=== PATIENT | female | born 1985 | race American Indian/Alaskan Native ===

== ENCOUNTER 2016-10-29 15:21 | Outpatient (CLI) | payer MEDICAID ==
[2016-10-29 15:57] VITALS: BP 108/62
== END 2016-10-29 17:00 | disposition home or self-care (01) ==
LOC: TRG 15:21
PROVIDERS: ATTEND Obstetrics & Gynecology
DX: O48.0 Post-term pregnancy (principal); Z3A.41 41 weeks gestation of pregnancy
CPT/HCPCS: 59025

== ENCOUNTER 2016-10-30 03:44 | Outpatient (CLI) | payer MEDICAID ==
[2016-10-30 04:13] VITALS: BP 126/68
[2016-10-30] MEDS ORDERED: VISTARIL PO ONE (05:22)
== END 2016-10-30 05:55 | disposition home or self-care (01) ==
LOC: TRG 03:44
PROVIDERS: ATTEND Obstetrics & Gynecology
DX: O48.0 Post-term pregnancy (principal); Z3A.41 41 weeks gestation of pregnancy
CPT/HCPCS: Q0177

== ENCOUNTER 2016-10-30 16:29 | Inpatient (IN) | payer MEDICAID ==
[~2016-10-30 16:29] MED LIST: NACL 0.9% IR ONE; WATER FOR IRRIG STERILE IR ONE
[2016-10-30] MEDS ORDERED: POLYCILLIN/NS 2 GM/100 ML 2 GM/100 ML BAG IV ONE (17:56)
[2016-10-30] MEDS ORDERED: LACTATED RINGERS 1,000 ML ONE (17:56)
[2016-10-30] MEDS ORDERED: MINERAL OIL PO PRN (18:07)
[2016-10-30] MEDS ORDERED: BRETHINE SUB-Q PRN (18:07)
[2016-10-30] MEDS ORDERED: BRETHINE IVP PRN (18:07)
[2016-10-30] MEDS ORDERED: ePHEDrine SULFATE IV PRN (18:07)
[2016-10-30] MEDS ORDERED: XYLOCAINE 2% INFILTRATI ONE (18:07)
--- NOTE | 2016-10-30 18:07 | History and Physical Report ---
History of Present Illness Date of examination: 10/30/16 Date of admission: 10/30/16 16:33 Chief complaint: my water broke and its brown History of present illness: Pt called provider nikunj 1530pm stating her water broke and she noted the color was brown mixed with clear fluid. Pt was advised to come to triage for evaluation. Pt is confirmed SROM with 3 to 4+mec noted. cx is 5/80/-1 to 0. Pt admitted for SROM and active labor @ 41 wks. EDC Confirmation: 10/23/2016 Gestational Age: 10 2/7 weeks Past History : 1 Para: 0 Past Medical History: Negative Past Medical History Past Surgical History: Tonsillectomy Past Medical History Surgery (Non-obstetrics gynecology physician): Tonsillectomy Abnormal PAP: negative CHANELL Exposure: negative Infertility: negative Uterine Anomaly: negative Uterine Surgery (not C/S): negative Other Gynecologic Problems: negative Social Hx: Patient is single Smoking History: Patient is a former smoker. Infection History Hx of STD: none HIV Risk Eval: low risk Hepatitis B Risk Eval: low risk Personal hx. of genital herpes: no Partner hx. of genital herpes: no Rash, Viral, or Febrile illness since last LMP? no Varicella/Chicken Pox Status: Previous Disease Genetic History Congenital Heart Defect: Mom: no Dad: no Leslie Disease: Mom: no Dad: no Thalassemia Mom: no Dad: no Neural Tube Defect Mom: no Dad: no Down's Syndrome Mom: no Dad: no Puneet-Sachs Mom: no Dad: no Sickle Cell Disease/Trait Mom: no Dad: no Hemophilia Mom: no Dad: no Muscular Dystrophy Mom: no Dad: no Cystic Fibrosis Mom: no Dad: no Coleman Chorea Mom: no Dad: no Mental Retardation Mom: no Dad: no Fragile X Mom: no Dad: no Other Genetic/Chromosomal Disorder Mom: no Dad: no Child w/other defect Mom: no Dad: no Enviromental Exposures Xray Exposure: no Medication, drug, or alcohol use since LMP: no Chemical/Other Exposure: no Exposure to Cat Liter: no Hx of Parvovirus (Fifth Disease): no Occupational Exposure to Children: none Past History Past Medical History: no pertinent history Past Surgical History: no surgical history 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: abnormal PAP smear Family/Genetic History: none Social history: no significant social history, single - Obstetrical History Expected Date of Delivery: 10/23/16 Actual Gestation: 41 Week(s) 0 Day(s) : 1 Medications and Allergies Allergies Allergy/AdvReac Type Severity Reaction Status Date / Time cefaclor [From Ceclor] Allergy Severe Anaphylaxis Verified 10/29/16 16:40 latex Allergy Rash Verified 10/29/16 16:40 FISH Allergy Intermediate Anaphylaxis Uncoded 10/29/16 16:40 Home Medications Medication Instructions Recorded Confirmed Last Taken Type Acetaminophen [Shake That Ache] 1,000 mg PO Q8HR PRN 10/29/16 10/29/16 10/28/16 21:00 History 1 Review of Systems All systems: negative - Vital Signs Vital signs: Vital Signs Pulse Pulse Ox 83 99 10/30/16 17:17 10/30/16 17:17 Temp Pulse Resp BP Pulse Ox 87 98 10/30/16 17:27 10/30/16 17:27 - Physical Exam Lungs: Positive: Normal air movement Abdomen: Positive: normal appearance, soft. Negative: tenderness, guarding Genitourinary (Female): Positive: normal external genitalia, normal perenium Vulva: both: normal (meconium fluid noted) - Obstetrical FHR: auscultation normal Cervical Dilatation: 5.5 Cervical Effacement Percentage: 80 station: -1 to 0 Uterine Contraction Pattern: Regular Uterine Tone Measurement Phase: Resting Uterine Contraction Intensity: Moderate Results All other labs normal. Assessment and Plan - Patient Problems (1) 41 weeks gestation of Current Visit: Yes Status: Acute (2) Active labor Current Visit: Yes Status: Acute Plan to address problem: -pelvis feels adequate -closely monitor -anticipate (3) Meconium in amniotic fluid affecting management of mother Current Visit: Yes Status: Acute Qualifiers: Fetus number: F Trimester: T Plan to address problem: -admit -pitocin augmentation to facilitate delivery (4) Group beta Strep positive Current Visit: Yes Status: Acute Plan to address problem: -clinda started at this time due to pt drug allery and possible interactions with amp, pcn, or ancef -pitocin to augment labor
[2016-10-30] MEDS: LACTATED RINGERS 1,000 ML IV SCH ×2 (18:20→23:12)
[2016-10-30 18:25] LABS: Hematocrit 34.4 % (30.3-42.9); Hemoglobin 11.1 gm/dl (10.1-14.3); Mean Corpuscular HGB Conc 32 % (30-34); Mean Corpuscular Volume 78 fl (79-97); Platelet Count 301 K/mm3 (140-440); Red Blood Count 4.39 M/mm3 (3.65-5.03); Red Cell Distribution Width 16.1 % (13.2-15.2); White Blood Count 7.8 K/mm3 (4.5-11.0)
[2016-10-30] MEDS: SUBLIMAZE IV PRN ×2 (18:37→20:41)
[2016-10-30 18:46] LABS: Mean Corpuscular Hemoglobin 25 pg (28-32)
[2016-10-30] MEDS ORDERED: PITOCin/NS 30 UNIT/500ML 30 UNITS/500 ML BAG IV SCH ×2 (19:00)
[2016-10-30] MEDS ORDERED: PITOCin/NS 20 UNIT/1000ML DRIP 20 UNITS/1,000 ML BAG IV SCH (19:00)
[2016-10-30] MEDS ORDERED: CLEOCIN 900 MG/50 mL 900 MG/50 ML BAG IV SCH (22:00)
[2016-10-30] MEDS ORDERED: BICITRA PO ONE (22:40)
[2016-10-30] MEDS ORDERED: BICITRA ONE (23:03)
[2016-10-30] MEDS ORDERED: PEPCID IV ONE (23:03)
[2016-10-30] MEDS ORDERED: REGLAN ONE (23:03)
--- NOTE | 2016-10-30 23:17 | Event Note ---
Date: 10/30/16 Patient has failed to make cervical change or descent despite adequate contractions with the pitocin. Will proceed with c/s at this time for failure to progress. All risk, benefits, and alternatives were d/w pt and questions were addressed and answered. Consents were signed and placed on the chart.
--- NOTE | 2016-10-30 23:26 | Anesthesia Day of Surgery ---
Anesthesia Day of Surgery - Day of Surgery Patient Examined: Yes Patient H&P Reviewed: Yes Patient is NPO: Yes
[2016-10-30] MEDS ORDERED: DILAUDID IV PRN (23:28)
[2016-10-30] MEDS ORDERED: NARCAN 0.4 MG/1 ML IV PRN (23:28)
[2016-10-30] MEDS ORDERED: ZOFRAN IV PRN (23:28)
--- NOTE | 2016-10-30 23:28 | Anesthesia Consultation ---
Anesthesia Consult and Med Hx Date of service: 10/30/16 - Airway Anesthetic Teeth Evaluation: Good ROM Head & Neck: Inadequate Mental/Hyoid Distance: Inadequate Mallampati Class: Class III Intubation Access Assessment: Possibly Difficult - Pulmonary Exam CTA: Yes (blbs clear) - Cardiac Exam Cardiac Exam: RRR - Pre-Operative Health Status ASA Pre-Surgery Classification: ASA3 Proposed Anesthetic Plan: Epidural, Spinal - Pulmonary Hx Asthma: No COPD: No Hx Pneumonia: No - Cardiovascular System Hx Hypertension: No - Central Nervous System Hx Seizures: No Hx Psychiatric Problems: No - Endocrine Hx Renal Disease: No Hx End Stage Renal Disease: No Hx Hypothyroidism: No Hx Hyperthyroidism: No - Hematic Hx Anemia: Yes Hx Sickle Cell Disease: No - Other Systems Hx Alcohol Use: Yes Hx Obesity: Yes (morbid obesity)
[2016-10-30] MEDS ORDERED: MORPHINE ONE (23:34)
[2016-10-30] MEDS ORDERED: SODIUM CHLORIDE FLUSH SYRINGE 10 ML IV NR (23:45)
[2016-10-31] MEDS ORDERED: METHERGINE IM ONE ×2 (00:21→04:24)
[2016-10-31] MEDS ORDERED: ZOFRAN ONE (00:34)
[2016-10-31] MEDS ORDERED: PEPCID IV ONE (01:00)
[2016-10-31] MEDS ORDERED: NORCO 5/325 PO PRN (02:02)
[2016-10-31] MEDS ORDERED: LANSINOH TP PRN (02:02)
[2016-10-31] MEDS ORDERED: TUCKS PAD TP PRN (02:02)
[2016-10-31] MEDS ORDERED: MILK OF MAGNESIA PO PRN (02:02)
[2016-10-31] MEDS ORDERED: MYLICON PO PRN (02:02)
[2016-10-31] MEDS ORDERED: MORPHINE IV PRN (02:02)
--- NOTE | 2016-10-31 02:11 | Operative Report ---
Operative Report Operative Report: Date of procedure: 10/31/2016 Pre-operative diagnosis: 41 weeks gestation 4+ meconium Morbid obesity Failure to progress Post-operative diagnosis: Same Procedure name(s): Primary low transverse section via Pfannenstiel skin incision Surgeon: Dr. Cee Senior Buyer: Certified surgical scrub assistant production manager Anesthesia: Epidural EBL: 850 mL Urine output: 100 mL of clear urine at the end of the procedure Fluids: 1600 mL Findings: Liveborn female infant weight 8 lbs. 6 oz. Apgars of 8 and 9 at one and 5 minutes Grossly normal fallopian tubes and ovaries Meconium stained placenta Indications: Patient presented in active labor with meconium noted on exam. Patient did not progress and remained approximately 5-6 cm for approximately 5-1 /2-6 hours without any progression in dilation or descent. Decision was made at this time to proceed with primary section for failed to progress. Procedure: Patient was taking to the operating room. Patient was then prepped and draped in sterile fashion after anesthesia was found to be adequate. A low transverse skin incision was made with the scalpel and carried down to the underlying layer of fascia with the Bovie. The fascia was then incised in the midline and this incision was extended bilaterally with the Bovie. The superior aspect of the fascia was grasped with Coleman clamps tented upward and dissected off of the anterior rectus muscles with the scalpel. In similar fashion the inferior aspect of the fascia was grasped with Coleman clamps tented upward and dissected off of the anterior rectus muscles. The rectus muscles were then bluntly divided in the midline. The peritoneum was identified and entered into sharply. The Castillo retractor was placed. The bladder blade was placed. The bladder flap was created using the Metzenbaum scissors. The bladder blade was replaced. A lower transverse uterine incision was made with the scalpel and extended bilaterally with the bandage scissors. The infant's head was then delivered atraumatically. The anterior shoulder and rest of infant delivered without difficulty. The umbilical cord was clamped x2. The cord was cut. The infant was then placed in sterile bassinet. The cord blood was collected The placenta was manually extracted in its entirety. The uterus was exteriorized and cleared of all clots and debris. The uterine incision was closed using 0 Vicryl in a running locking fashion. A second imbricating layer of the same suture was then created. The posterior cul-de-sac was copiously irrigated. The uterus was returned to the abdomen. The gutters were also irrigated. The Castillo retractor was removed from the abdomen. The anterior rectus muscles were reapproximated using 3-0 Vicryl. The anterior rectus fascia was reapproximated using 0 Vicryl in a running fashion. The subcuticular fat was reapproximated using 2-0 Vicryl in a running fashion. The skin was reapproximated with 4-0 Monocryl with a subcuticular stitch. The patient tolerated the procedure well. Sponge lap and needle counts were all correct x3. Patient was taken to the recovery room awake and in stable condition.
[2016-10-31] MEDS: TORADOL IV PRN ×2 (04:39→10:11)
[2016-10-31] MEDS ORDERED: BENADRYL IV ONE (05:09)
[2016-10-31] MEDS: CLEOCIN 600 MG/50 mL 600 MG/50 ML BAG IV SCH ×2 (05:44→13:49)
[2016-10-31] MEDS ORDERED: REGLAN IV ONE (07:08)
[2016-10-31] MEDS ORDERED: D5LR 1,000 ML IV SCH (08:00)
[2016-10-31] MEDS: BENADRYL IV PRN ×2 (10:11→22:18)
[2016-10-31] MEDS ORDERED: NACL 0.9% ONE (11:30)
[2016-10-31] MEDS ORDERED: NEO SYNEPHRINE ONE (11:30)
[2016-10-31] MEDS: NORCO 5/325 PO PRN ×3 (13:47→22:47)
[2016-10-31 15:44] LABS: Hematocrit 29.8 % (30.3-42.9); Hemoglobin 9.4 gm/dl (10.1-14.3)
[2016-10-31] MEDS: MOTRIN PO PRN (19:08)
[2016-10-31] MEDS ORDERED: BENADRYL PO PRN (22:31)
[2016-11-01] MEDS: NORCO 5/325 PO PRN ×4 (03:39→19:00)
[2016-11-01] MEDS: MOTRIN PO PRN ×3 (03:39→19:00)
[2016-11-01] MEDS ORDERED: BOOSTRIX IM ONE (06:00)
--- NOTE | 2016-11-01 06:41 | Progress Note ---
Assessment and Plan - Patient Problems (1) delivery delivered Onset Date: ~10/31/16 Current Visit: Yes Status: Acute Plan to address problem: Pt sitting in bed tending to NB. No c/o voiced VSS FF below umb Lochia small Incision D&I H&H 03/25 drop related to blood loss from surgery Pt is w/o sx of anemia. PO iron ordered Doing well s/p section. P: continue pathway Advance diet and activity. Subjective - Subjective Date of service: 11/01/16 (pt A&O X 3) Principal diagnosis: Day # 1 s/p primary section Patient reports: appetite normal, voiding normally, pain well controlled, ambulating normally [place]: doing well Objective - Vital Signs Latest vital signs: Vital Signs Temp Pulse Pulse Resp BP 10/31/16 23:20 97.7 F 74 20 116/60 10/31/16 20:20 98.1 F 82 22 115/59 10/31/16 16:05 98.2 F 0 L 76 20 111/57 10/31/16 08:15 98.3 F 90 20 104/57 Intake and Output 10/31/16 10/31/16 11/01/16 14:59 22:59 06:59 Intake Total 240 600 600 Output Total 900 Balance 240 600 -300 Intake: Oral 240 600 Intake, Free Water 600 Output: Urine 900 Void 900 Other: Total, Intake Amount 240 240 Total, Output Amount 900 # Voids Void 400 1 - Exam Breasts: Present: Cardiovascular: Present: Regular rate Lungs: Present: Clear to auscultation, Normal air movement Abdomen: Present: normal appearance, soft, normal bowel sounds Uterus: Present: normal, fundal height below umbilicus Extremities: Present: edema Deep Tendon Reflex Grade: Normal +2 Incision: Present: dry, intact - Labs Labs: Abnormal lab results 10/31/16 Range/Units 15:25 Hgb 9.4 L (10.1-14.3) gm/dl Hct 29.8 L (30.3-42.9) %
[2016-11-01] MEDS: COLACE PO SCH ×2 (08:30→21:36)
[2016-11-01] MEDS: FEOSOL PO SCH ×2 (08:30→21:37)
[2016-11-02] MEDS: NORCO 5/325 PO PRN ×3 (01:37→17:42)
[2016-11-02] MEDS: MOTRIN PO PRN ×3 (01:37→12:42)
--- NOTE | 2016-11-02 08:16 | Progress Note ---
Assessment and Plan Patient doing well, no complaints. Lochia scant, incision D&I, VSSAF, H&H stable, no s/s anemia. Patient desires d/c home today. Reviewed wound care and importance of keeping incision clean and dry. Patient verbalized understanding. Plan for d/c home with 1 week f/u in office. - Patient Problems (1) Anemia due to blood loss, acute Current Visit: Yes Status: Acute Plan to address problem: asymptomatic encourage increased dietary FE sources (2) delivery delivered Onset Date: ~10/31/16 Current Visit: Yes Status: Acute Subjective - Subjective Date of service: 11/02/16 Principal diagnosis: Day # 2 s/p primary section Patient reports: appetite normal, voiding normally, pain well controlled, flatus , ambulating normally, no dizzy ambulation, no nauseated [place]: doing well, nursing well (breast and bottle feeding ) Objective - Vital Signs Latest vital signs: Vital Signs Temp Pulse Resp BP 11/02/16 00:00 98.0 F 84 20 125/63 11/01/16 15:55 97.9 F 82 18 102/58 Intake and Output 11/01/16 11/02/16 11/02/16 22:59 06:59 14:59 Intake Total 480 240 Balance 480 240 Intake: Oral 480 240 Other: Total, Intake Amount 480 240 # Voids Void 1 1 # Bowel Movements 1 - Exam Breasts: Present: normal, Cardiovascular: Present: Regular rate Lungs: Present: Clear to auscultation, Normal air movement Abdomen: Present: normal appearance, soft, normal bowel sounds Vulva: both: normal Uterus: Present: normal, firm, fundal height at umbilicus Extremities: Present: normal Deep Tendon Reflex Grade: Normal +2 Incision: Present: normal, dry, intact
--- NOTE | 2016-11-02 08:20 | Discharge Summary ---
Providers - Providers Date of Admission: 10/30/16 16:33 Date of discharge: 11/02/16 (desires d/c home) Attending physician: ROCAEL ELDER Primary care physician: ROCAEL ELDER Hospitalization Reason for admission: active labor, rupture of membranes Delivery: Procedure: primary low transverse Episiotomy: none Laceration: none Incision: normal, dry, intact Other procedures: none complications: none Discharge diagnosis: IUP at term delivered [place] baby: female Hospital course: uncomplicated c/s delivery Condition at discharge: Good Disposition: DISCHARGED TO HOME OR SELFCARE - Discharge Diagnoses (1) Anemia due to blood loss, acute Status: Acute (2) delivery delivered Status: Acute Plan - Discharge Medications Prescriptions: Docusate Sodium [Colace] 100 mg PO BID PRN #30 capsule PRN Reason: Constipation Ibuprofen [Motrin 800 MG tab] 800 mg PO Q8HR PRN #30 tablet PRN Reason: Pain oxyCODONE /ACETAMINOPHEN [Percocet 5/325] 1 tab PO Q4HR #30 tab - Provider Discharge Summary Activity: routine, no sex for 6 weeks, no heavy lifting 4 weeks, no strenuous exercise Diet: routine Instructions: routine Additional instructions: [] Smoking cessation referral if applicable(refer to patient education folder for contact #) [] Refer to [facility] Booklet Call your doctor immediately for: * Fever > 100.5 * Heavy vaginal bleeding ( >1 pad per hour) * Severe persistent headache * Shortness of breath * Reddened, hot, painful area to leg or breast * Drainage or odor from incision. * Keep incision clean and dry at all times and follow doctor's instructions regarding bathing/showering - Follow up plan Follow up: ROCAEL ELDER MD [Primary Care Provider] - 7 Days (Congratulations!! Please call [phone] to schedule your incision check in 1 week. Call for any questions or concerns.)
[2016-11-02] MEDS: FEOSOL PO SCH (09:37)
[2016-11-02] MEDS: COLACE PO SCH (09:37)
[2016-11-02 18:31] VITALS: BP 128/84
== END 2016-11-02 18:25 | disposition home or self-care (01) | DRG 765 ==
LOC: TRG 16:29 → LD 16:33 → OB 10-31 02:38
PROVIDERS: ADMIT Obstetrics & Gynecology; ATTEND Obstetrics & Gynecology
PROC: 10D00Z1 Extraction of Products of Conception, Low, Open Approach (ICD-10-PCS; principal; 2016-10-30)
DX: O77.0 Labor and delivery complicated by meconium in amniotic fluid (principal); Z68.43 Body mass index [BMI] 50.0-59.9, adult; D62 Acute posthemorrhagic anemia; O99.824 Streptococcus B carrier state complicating childbirth; O42.92 Full-term premature rupture of membranes, unspecified as to length of time between rupture and onset of labor; O99.214 Obesity complicating childbirth; E66.01 Morbid (severe) obesity due to excess calories; O90.81 Anemia of the puerperium; Z3A.41 41 weeks gestation of pregnancy; Z37.0 Single live birth; Z91.040 Latex allergy status; Z91.013 Allergy to seafood; Z88.8 Allergy status to other drugs, medicaments and biological substances
CPT/HCPCS: 36415; 85014; 85018; 85027; 86592; 86850; 86900; 86901; 88307; 99211; C1765; G0463; J0290; J1200; J1885; J2210; J2270; J2370; J2405; J2590; J2765; J3010; J7120; J7121

== ENCOUNTER 2016-11-17 10:18 | Outpatient (CLI) | payer MEDICAID ==
[2016-11-17] MEDS ORDERED: XYLOCAINE TOPICAL 4% TP ONE ×2 (11:07→11:17)
== END 2016-11-17 10:19 | disposition home or self-care (01) ==
LOC: WOUND 10:18
PROVIDERS: ATTEND Surgery
DX: T81.31XA Disruption of external operation (surgical) wound, not elsewhere classified, initial encounter (principal); Z87.891 Personal history of nicotine dependence; Z72.89 Other problems related to lifestyle; Y83.8 Other surgical procedures as the cause of abnormal reaction of the patient, or of later complication, without mention of misadventure at the time of the procedure; Y92.89 Other specified places as the place of occurrence of the external cause
CPT/HCPCS: 99215; G0463

== ENCOUNTER 2016-11-24 14:48 | Outpatient (CLI) | payer MEDICAID ==
[2016-11-24] MEDS ORDERED: XYLOCAINE TOPICAL 4% TP ONE (15:05)
[2016-11-24] MEDS ORDERED: SILVER NITRATE TP ONE (15:27)
[2016-11-26] MEDS ORDERED: SILVER NITRATE TP ONE (08:49)
== END 2016-11-24 14:49 | disposition home or self-care (01) ==
LOC: WOUND 14:48
PROVIDERS: ATTEND Surgery
DX: T81.89XD Other complications of procedures, not elsewhere classified, subsequent encounter (principal); Z87.891 Personal history of nicotine dependence; Z72.89 Other problems related to lifestyle; Y83.8 Other surgical procedures as the cause of abnormal reaction of the patient, or of later complication, without mention of misadventure at the time of the procedure
CPT/HCPCS: 17250

== ENCOUNTER 2016-12-01 11:33 | Outpatient (CLI) | payer MEDICAID ==
[2016-12-01] MEDS ORDERED: XYLOCAINE TOPICAL 4% TP ONE ×2 (11:59→15:29)
== END 2016-12-01 11:34 | disposition home or self-care (01) ==
LOC: WOUND 11:33
PROVIDERS: ATTEND Surgery
DX: T81.89XD Other complications of procedures, not elsewhere classified, subsequent encounter (principal); Z87.891 Personal history of nicotine dependence; Z72.89 Other problems related to lifestyle; Y83.8 Other surgical procedures as the cause of abnormal reaction of the patient, or of later complication, without mention of misadventure at the time of the procedure
CPT/HCPCS: 99214; G0463

== ENCOUNTER 2016-12-08 13:53 | Outpatient (CLI) | payer MEDICAID ==
[2016-12-08] MEDS ORDERED: XYLOCAINE TOPICAL 4% TP ONE ×2 (14:20→14:21)
== END 2016-12-08 13:54 | disposition home or self-care (01) ==
LOC: WOUND 13:53
PROVIDERS: ATTEND Internal Medicine
DX: T81.89XD Other complications of procedures, not elsewhere classified, subsequent encounter (principal); Z87.891 Personal history of nicotine dependence; Z72.89 Other problems related to lifestyle; Y83.8 Other surgical procedures as the cause of abnormal reaction of the patient, or of later complication, without mention of misadventure at the time of the procedure

== ENCOUNTER 2016-12-22 13:50 | Outpatient (CLI) | payer MEDICAID ==
[2016-12-22] MEDS ORDERED: XYLOCAINE TOPICAL 2% ONE (14:02)
[2016-12-22] MEDS ORDERED: XYLOCAINE TOPICAL 2% TP ONE (15:00)
== END 2016-12-22 13:51 | disposition home or self-care (01) ==
LOC: WOUND 13:50
PROVIDERS: ATTEND Surgery
DX: T81.89XD Other complications of procedures, not elsewhere classified, subsequent encounter (principal); Z87.891 Personal history of nicotine dependence; Z72.89 Other problems related to lifestyle; Y83.8 Other surgical procedures as the cause of abnormal reaction of the patient, or of later complication, without mention of misadventure at the time of the procedure
CPT/HCPCS: 99214; G0463

== ENCOUNTER 2016-12-29 14:01 | Outpatient (CLI) | payer MEDICAID ==
[2016-12-29] MEDS ORDERED: XYLOCAINE TOPICAL 4% TP ONE ×2 (14:57→16:44)
[2016-12-29] MEDS ORDERED: NACL 0.9% 500 ML IR ONE (15:01)
[2016-12-29] MEDS ORDERED: NACL 0.9% IR ONE (16:44)
== END 2016-12-29 14:02 | disposition home or self-care (01) ==
LOC: WOUND 14:01
PROVIDERS: ATTEND Surgery
DX: T81.89XD Other complications of procedures, not elsewhere classified, subsequent encounter (principal); Z87.891 Personal history of nicotine dependence; Z72.89 Other problems related to lifestyle; Y83.8 Other surgical procedures as the cause of abnormal reaction of the patient, or of later complication, without mention of misadventure at the time of the procedure
CPT/HCPCS: 99214; G0463

== ENCOUNTER 2017-01-05 13:31 | Outpatient (CLI) | payer MEDICAID ==
[2017-01-05] MEDS ORDERED: XYLOCAINE TOPICAL 4% TP ONE (14:28)
== END 2017-01-05 13:32 | disposition home or self-care (01) ==
LOC: WOUND 13:31
PROVIDERS: ATTEND Surgery
DX: T81.89XD Other complications of procedures, not elsewhere classified, subsequent encounter (principal); Z87.891 Personal history of nicotine dependence; Z72.89 Other problems related to lifestyle; Y83.8 Other surgical procedures as the cause of abnormal reaction of the patient, or of later complication, without mention of misadventure at the time of the procedure
CPT/HCPCS: 99214; G0463

== ENCOUNTER 2021-01-27 09:38 | Emergency (ER) | payer MEDICAID ==
[2021-01-27 10:31] VITALS: BP 141/90
== END 2021-01-27 13:41 | disposition left against medical advice (07) ==
LOC: ED 09:38
DX: R10.9 Unspecified abdominal pain (principal); Z53.21 Procedure and treatment not carried out due to patient leaving prior to being seen by health care provider